=== PATIENT | female | born 1940 | race Caucasian/White ===

== ENCOUNTER 2020-07-15 09:28 | Observation (INO) | payer MEDICARE, BC ==
[~2020-07-15] VITALS: Ht 160 cm; Wt 81.3 kg
[~2020-07-15 09:28] MED LIST: ACET325T14 PO; ATEN25TA PO; CHOL3000 PO; RIVA20TA PO
[2020-07-15] MEDS ORDERED: SOTA80TA PO (09:57)
[2020-07-15] MEDS ORDERED: SODIUM CHLORIDE 0.9% 1,000 ML IV SCH (10:00)
[2020-07-15] MEDS ORDERED: PLEASE ENTER HEIGHT AND WEIGHT MC SCH (10:00)
[2020-07-15 11:48] LABS: BASOPHILS % (AUTO) 1 % (0-1); EOSINOPHILS % (AUTO) 1 % (1-7); LYMPHOCYTES % (AUTO) 23 % (22-44); MEAN CORPUSCULAR HEMOGLOBIN 30.7 pg (27.0-34.8); MEAN CORPUSCULAR HGB CONC 33.5 g/dL (32.4-35.8); MEAN PLATELET VOLUME 9.8 fL (7.4-10.4); MONOCYTES % (AUTO) 8 % (2-9); NEUTROPHILS % (AUTO) 67 % (42-75); PLATELET COUNT 215 x10^3/uL (130-400); RED BLOOD COUNT 4.97 x10^6/uL (3.82-5.3); RED CELL DISTRIBUTION WIDTH 14.1 % (9.6-15.2)
[2020-07-15 11:49] LABS: MD NO
[2020-07-15 11:59] LABS: ANION GAP 4 mmol/L (5-15); CALCIUM 8.8 mg/dL (8.5-10.1); CHLORIDE 114 mmol/L (98-107)
[2020-07-15 12:00] LABS: CREATININE 0.74 mg/dL (0.55-1.02)
[2020-07-15] MEDS ORDERED: LIDOCAINE 1%, 20ML ONE (12:22)
[2020-07-15] MEDS ORDERED: FENTANYL PF 100 MCG/2ML ONE (12:22)
[2020-07-15] MEDS ORDERED: DIPHENHYDRAMINE 50 MG/ML, 1ML ONE (12:36)
[2020-07-15 16:07] VITALS: BP 131/84
[2020-07-15] MEDS ORDERED: RIVAROXABAN 20 MG TABLET PO SCH ×2 (17:00)
[2020-07-15 19:54] VITALS: BP 138/92
[2020-07-15] MEDS: SOTALOL 80MG TABLET PO SCH (21:00)
[2020-07-16 00:59] VITALS: BP 128/83
[2020-07-16 06:39] VITALS: BP 150/88
[2020-07-16] MEDS: SOTALOL 80MG TABLET PO SCH (09:35)
== END 2020-07-16 10:27 | disposition home or self-care (01) ==
LOC: CACL 09:28 → ORIP 13:12 → 5SO 13:54 → DCLOUNGE 07-16 10:17
PROVIDERS: ADMIT Internal Medicine Cardiovascular Disease; ATTEND Internal Medicine Cardiovascular Disease
DX: I48.0 Paroxysmal atrial fibrillation (principal); I44.2 Atrioventricular block, complete; Z95.0 Presence of cardiac pacemaker; Z79.899 Other long term (current) drug therapy
CPT/HCPCS: 36415; 80048; 85025; 93650; 99156; C1894; C2630; G0378; J1200; J3010; J3490